=== PATIENT | male | born 1990 | race Two or more races ===

== ENCOUNTER 2024-06-18 00:24 | Emergency (ER) | payer OTHER ==
[~2024-06-18] VITALS: Ht 167.6 cm; Wt 70.8 kg
[2024-06-18] MEDS ORDERED: HYOSCYAMINE SULFATE 0.125 MG TAB.SUBL SL STA (03:04)
[2024-06-18] MEDS ORDERED: RINGERS SOLUTION,LACTATED 1,000 ML IV STA (03:05)
[2024-06-18] MEDS ORDERED: FAMOtidine 10 MG/ML (4ML VIAL) IV PUSH STA (03:06)
[2024-06-18 03:30] LABS: HEMATOCRIT 46.7 % (39.0-48.0); HEMOGLOBIN 15.6 g/dL (13-16.00); MEAN CELL VOLUME 79.8 fL (80.0-100.00); MEAN CORPUSCULAR HEMOGLOBIN 26.6 pg (27.00-32.0); MEAN CORPUSCULAR HGB CONC 33.4 g/dl (32.0-36.0); PLATELET COUNT 191 K/uL (150-450); RED BLOOD COUNT 5.85 M/uL (4.00-6.00); RED CELL DISTRIBUTION WIDTH 12.6 % (11.5-14.5)
[2024-06-18 04:19] LABS: CALCIUM 9.5 mg/dL (8.5-10.1); CREATININE SERUM 0.94 mg/dL (0.70-1.30); POTASSIUM 4.26 mEq/L (3.5-5.1)
== END 2024-06-18 06:46 | disposition home or self-care (01) ==
LOC: ER 00:25
DX: K52.9 Noninfective gastroenteritis and colitis, unspecified (principal)